=== PATIENT | female | born 1935 | race Caucasian/White ===

== ENCOUNTER 2017-04-11 08:30 | Inpatient (IN) | payer MEDICARE, OTHER ==
[~2017-04-11] VITALS: Ht 152.4 cm; Wt 64.5 kg
[2017-04-11] VITALS (14 sets, daily range): BP systolic 136–196; BP diastolic 77–92; PULSE 64–77; RESP 17–20; TEMP 97.8–99.1; O2SAT 96–98
[~2017-04-11 08:30] MED LIST: CHLO50TA PO; DARV PO; HYDR-3533 PO; HYDR-3580 PO; TRAD5TAB PO
[2017-04-11] MEDS ORDERED: CHLO25TA2 PO (08:47)
[2017-04-11] MEDS ORDERED: BENZ1CAP8 PO (08:47)
[2017-04-11] MEDS ORDERED: GLIM1TAB PO (08:47)
[2017-04-11] MEDS ORDERED: SODIUM CHLORIDE 0.9% FLUSH 10 ML FLUSH IVF PRN (09:00)
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
[2017-04-11 09:37] LABS: AUTOMATED NEUTROPHIL # 12.1 TH/MM3 (1.8-7.7); BASOPHIL % 0.1 % (0.0-2.0); EOSINOPHIL % 0.2 % (0.0-4.0); HEMO FLAGS DIFF FINAL; LYMPH % 6.3 % (9.0-44.0); LYMPHOCYTE # 0.9 TH/MM3 (1.0-4.8); MEAN CELL VOLUME 89.2 FL (80.0-100.0); MEAN CORPUSCULAR HEMOGLOBIN 31.6 PG (27.0-34.0); MEAN CORPUSCULAR HGB CONC 35.4 % (32.0-36.0); MONO % 6.9 % (0.0-8.0); NEUT % 86.5 % (16.0-70.0); PLATELET COUNT 258 TH/MM3 (150-450); RED BLOOD COUNT 3.47 MIL/MM3 (4.00-5.30); RED CELL DISTRIBUTION WIDTH 12.2 % (11.6-17.2)
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
--- NOTE | 2017-04-11 09:39 | RADRPT ---
EXAM DATE/TIME: 04/11/2017 08:53 [facility] COMPARISON: No previous studies available for comparison. INDICATIONS : Shortness of breath, fall. MEDICAL HISTORY : Hypertension. Diabetes mellitus type II. SURGICAL HISTORY : None. ENCOUNTER: Initial ACUITY: 1 day PAIN SCORE: 0/10 LOCATION: Bilateral chest FINDINGS: Mild diffuse interstitial prominence and linear opacities in the left lower lobe. Cardiac silhouette is mildly enlarged. Pulmonary vascularity slight indistinct. Old left-sided rib fractures are noted. No definite acute displaced rib fractures. CONCLUSION: 1. Cardiomegaly with mild positive fluid balance. 2. Minimal left lower lobe atelectasis. Carlos Eduardo Stoner MD on April 11, 2017 at 9:36 Board Certified Radiologist. This report was verified electronically.
[2017-04-11 09:42] LABS: BLOOD, URINE NEG (NEG); GLUCOSE,URINE NEG (NEG); KETONE, URINE 40 mg/dL (NEG); MUCUS URINE FEW /lpf (OCC); NITRITE,URINE NEG (NEG); URINE COLOR YELLOW (YELLW/STRAW)
[2017-04-11 09:43] LABS: COMMENT (UR) CATH-CULT NOT IND; CULTURE IF INDICATED CATH CULTURE NOT IND
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
[2017-04-11 09:56] LABS: APTT (PATIENT) 29.6 SEC (24.3-30.1); PROTHROMBIN TIME - PATIENT 10.7 SEC (9.8-11.6)
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
[2017-04-11 10:16] LABS: BICARBONATE 25.1 MEQ/L (21.0-32.0)
[2017-04-11] MEDS ORDERED: SODIUM CHLORID 0.9% 500 ML INJ 500 ML IV ONE (10:30)
[2017-04-11] MEDS ORDERED: POTASSIUM CHLORIDE 25 MEQ EFFERVESCENT TAB PO ONE (10:30)
[2017-04-11 10:35] LABS: CKMB 5.9 NG/ML (0.5-3.6)
[2017-04-11] MEDS ORDERED: NALOXONE HCL 0.4 MG/ML AMP IV PRN (11:15)
[2017-04-11] MEDS ORDERED: ONDANSETRON HCL 4 MG/2 ML VIAL IVP PRN (11:15)
[2017-04-11] MEDS ORDERED: SODIUM CHLORIDE 0.9% FLUSH 10 ML FLUSH IV FLUSH PRN (11:15)
[2017-04-11] MEDS ORDERED: ACETAMINOPHEN 325 MG TAB PO PRN (11:15)
[2017-04-11] MEDS ORDERED: GLUCAGON 1 MG/ML VIAL OTHER PRN (11:15)
[2017-04-11] MEDS ORDERED: DEXTROSE 50% IN WATER 50 ML VIAL(D50) IV PRN (11:15)
[2017-04-11] MEDS: SODIUM CHLOR 0.9% 1000 ML INJ 1,000 ML IV SCH (12:09)
--- NOTE | 2017-04-11 14:32 | EKG ---
Date Performed: 04/11/2017 Time Performed: 09:19:58 PTAGE: 81 years EKG: Sinus rhythm INFERIOR MYOCARDIAL INFARCTION ABNORMAL ECG NO PREVIOUS TRACING DOCTOR: Romero Lucero Interpretating Date/Time 04/11/2017 14:31:21
[2017-04-11] MEDS ORDERED: GADODIAMIDE PF 287 MG/ML 5 ML VIAL (for RAD MRI) IV ONE (15:06)
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
[2017-04-11] MEDS: INSULIN ASPART SUPPLEMENTAL SCALE SQ SCH ×2 (16:00→20:59)
[2017-04-11] MEDS ORDERED: RESP: ALBUTEROL 2.5 MG/IPRATROPIUM 0.5 MG NEB (PRN) NEB (16:00)
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
[2017-04-11 18:34] LABS: BICARBONATE 27.5 MEQ/L (21.0-32.0); POTASSIUM 3.4 MEQ/L (3.5-5.1)
[2017-04-11] MEDS: DOCUSATE SODIUM 50 MG/SENNA 8.6 MG TAB PO SCH (20:55)
[2017-04-11] MEDS: SODIUM CHLORIDE 0.9% FLUSH 10 ML FLUSH IV FLUSH SCH (20:57)
[2017-04-12] VITALS (24 sets, daily range): BP systolic 103–157; BP diastolic 44–73; PULSE 64–128; RESP 16–28; TEMP 97.7–100; O2SAT 95–98
[2017-04-12 04:41] LABS: AUTOMATED NEUTROPHIL # 8.3 TH/MM3 (1.8-7.7); BASOPHIL % 0.2 % (0.0-2.0); EOSINOPHIL # 0.1 TH/MM3 (0-0.4); EOSINOPHIL % 0.6 % (0.0-4.0); HEMATOCRIT 26.3 % (35.0-46.0); HEMO FLAGS DIFF FINAL; LYMPH % 12.3 % (9.0-44.0); LYMPHOCYTE # 1.3 TH/MM3 (1.0-4.8); MEAN CELL VOLUME 89.3 FL (80.0-100.0); MEAN CORPUSCULAR HGB CONC 35.8 % (32.0-36.0); MONO % 9.1 % (0.0-8.0); NEUT % 77.8 % (16.0-70.0); PLATELET COUNT 230 TH/MM3 (150-450); RED BLOOD COUNT 2.95 MIL/MM3 (4.00-5.30); RED CELL DISTRIBUTION WIDTH 12.3 % (11.6-17.2); WHITE BLOOD COUNT 10.7 TH/MM3 (4.0-11.0)
[2017-04-12 05:02] LABS: ANION GAP 8 MEQ/L (5-15)
[2017-04-12 05:06] LABS: ALKALINE PHOSPHATASE 48 U/L (45-117); ALT (GPT) 16 U/L (10-53); AST (GOT) 18 U/L (15-37); BICARBONATE 28.1 MEQ/L (21.0-32.0); BLOOD UREA NITROGEN 17 MG/DL (7-18); CHLORIDE 86 MEQ/L (98-107); GLOMERULAR FILTRATION RATE 118 ML/MIN (>89); TOTAL BILIRUBIN ADULT 0.9 MG/DL (0.2-1.0)
[2017-04-12 05:08] LABS: SODIUM (NA) 122 MEQ/L (136-145)
[2017-04-12] MEDS: INSULIN ASPART SUPPLEMENTAL SCALE SQ SCH ×4 (06:13→20:09)
[2017-04-12] MEDS ORDERED: POTASSIUM CHLORIDE 25 MEQ EFFERVESCENT TAB PO ONE (07:45)
[2017-04-12] MEDS: GLIMEPIRIDE 1 MG TAB PO SCH (08:43)
[2017-04-12] MEDS: DOCUSATE SODIUM 50 MG/SENNA 8.6 MG TAB PO SCH ×2 (08:43→20:07)
[2017-04-12] MEDS: SODIUM CHLORIDE 0.9% FLUSH 10 ML FLUSH IV FLUSH SCH ×2 (08:46→20:08)
[2017-04-12] MEDS ORDERED: NON-FORMULARY DRUG (Chlorthalidone 25 MG) PO SCH (09:00)
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
[2017-04-12] MEDS ORDERED: PNEUMOCOCCAL POLYVALENT INJ 25 MCG/0.5 ML SYR IM ONE (10:00)
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
[2017-04-12] MEDS ORDERED: DILTIAZEM HCL 25 MG/5 ML VIAL IV ONE ×2 (16:00)
[2017-04-12] MEDS: SODIUM CHLOR 0.9% 1000 ML INJ 1,000 ML IV SCH ×2 (16:36→21:46)
[2017-04-13] VITALS (26 sets, daily range): BP systolic 105–172; BP diastolic 47–79; PULSE 68–111; RESP 18–27; TEMP 97.5–99.2; O2SAT 97–100
[2017-04-13 06:25] LABS: BICARBONATE 25.6 MEQ/L (21.0-32.0); POTASSIUM 3.3 MEQ/L (3.5-5.1)
[2017-04-13] MEDS: INSULIN ASPART SUPPLEMENTAL SCALE SQ SCH ×4 (06:31→21:29)
[2017-04-13] MEDS: GLIMEPIRIDE 1 MG TAB PO SCH (08:42)
[2017-04-13] MEDS: SODIUM CHLORIDE 0.9% FLUSH 10 ML FLUSH IV FLUSH SCH ×2 (08:42→21:00)
[2017-04-13] MEDS: DOCUSATE SODIUM 50 MG/SENNA 8.6 MG TAB PO SCH ×2 (09:00→21:29)
[2017-04-13] MEDS: SODIUM CHLOR 0.9% 1000 ML INJ 1,000 ML IV SCH ×2 (10:41→21:43)
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
[2017-04-13] MEDS: POLYETHYLENE GLYCOL 17 GM PKG PO PRN (12:16)
[2017-04-13] MEDS: VITAMIN B COMPLEX/VIT C TAB PO SCH (12:16)
--- NOTE | 2017-04-13 14:19 | EKG ---
Date Performed: 04/12/2017 Time Performed: 15:53:58 PTAGE: 81 years EKG: Atrial fibrillation with rapid ventricular response. Inferior infarct - age undetermined QR S changes V3/V4 may be due to LVH but cannot rule out anterior infarct Lateral ST-T changes may be du e to myocardial ischemia Abnormal ECG PREVIOUS TRACING : 04/11/2017 09.19 Since the prior tracing, the patient has developed atrial f ibrillation with a rapid ventricular response. DOCTOR: Celia Martinez Interpretating Date/Time 04/13/2017 14:18:18
[2017-04-13] MEDS ORDERED: POTASSIUM CHLORIDE 20 MEQ CONTROLLED RELEASE TAB PO ONE (16:00)
[2017-04-13] MEDS: MAGNESIUM HYDROXIDE SUSP 30 ML CUP PO PRN (18:38)
[2017-04-14] VITALS (25 sets, daily range): BP systolic 140–189; BP diastolic 64–86; PULSE 69–80; RESP 20–28; TEMP 97.8–99.4; O2SAT 20–98
[2017-04-14] MEDS: INSULIN ASPART SUPPLEMENTAL SCALE SQ SCH ×4 (07:00→19:57)
[2017-04-14 07:24] LABS: BICARBONATE 23.7 MEQ/L (21.0-32.0); POTASSIUM 4.5 MEQ/L (3.5-5.1)
[2017-04-14] MEDS: SODIUM CHLORIDE 0.9% FLUSH 10 ML FLUSH IV FLUSH SCH ×2 (09:00→19:54)
[2017-04-14] MEDS: DOCUSATE SODIUM 50 MG/SENNA 8.6 MG TAB PO SCH ×2 (09:00→20:05)
[2017-04-14] MEDS: GLIMEPIRIDE 1 MG TAB PO SCH (09:56)
[2017-04-14] MEDS: MAGNESIUM HYDROXIDE SUSP 30 ML CUP PO PRN (09:56)
[2017-04-14] MEDS: VITAMIN B COMPLEX/VIT C TAB PO SCH (09:56)
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
[2017-04-14] MEDS: MULTIVITAMIN-OPHTHALMIC 1 TAB PO SCH (10:45)
[2017-04-14] MEDS: SODIUM CHLOR 0.9% 1000 ML INJ 1,000 ML IV SCH (11:30)
[2017-04-14] MEDS: ENALAPRILAT 1.25 MG/ML VIAL IV PUSH PRN (19:55)
[2017-04-14] MEDS: POLYETHYLENE GLYCOL 17 GM PKG PO PRN (20:06)
[2017-04-15] VITALS (20 sets, daily range): BP systolic 149–187; BP diastolic 74–82; PULSE 72–92; RESP 16–22; TEMP 98.6–98.9; O2SAT 96–100
[2017-04-15] MEDS: SODIUM CHLOR 0.9% 1000 ML INJ 1,000 ML IV SCH (01:48)
[2017-04-15] MEDS: INSULIN ASPART SUPPLEMENTAL SCALE SQ SCH ×4 (06:45→20:55)
[2017-04-15] MEDS: MULTIVITAMIN-OPHTHALMIC 1 TAB PO SCH (08:31)
[2017-04-15] MEDS: DOCUSATE SODIUM 50 MG/SENNA 8.6 MG TAB PO SCH ×2 (08:31→20:45)
[2017-04-15] MEDS: VITAMIN B COMPLEX/VIT C TAB PO SCH (08:31)
[2017-04-15] MEDS: GLIMEPIRIDE 1 MG TAB PO SCH (08:31)
[2017-04-15] MEDS: ENALAPRILAT 1.25 MG/ML VIAL IV PUSH PRN ×2 (09:25→16:35)
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
[2017-04-15] MEDS ORDERED: amLODIPine BESYLATE 5 MG TAB PO ONE (12:45)
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
[2017-04-15] MEDS: POLYETHYLENE GLYCOL 17 GM PKG PO PRN (20:46)
[2017-04-15] MEDS: SODIUM CHLORIDE 0.9% FLUSH 10 ML FLUSH IV FLUSH SCH (20:46)
[2017-04-15] MEDS: MAGNESIUM HYDROXIDE SUSP 30 ML CUP PO PRN (20:46)
[2017-04-16] VITALS (22 sets, daily range): BP systolic 151–170; BP diastolic 69–83; PULSE 71–86; RESP 18–20; TEMP 97.6–98.7; O2SAT 96–99
[2017-04-16 06:45] LABS: HEMATOCRIT 21.3 % (35.0-46.0); MEAN CELL VOLUME 91.6 FL (80.0-100.0); MEAN CORPUSCULAR HEMOGLOBIN 32.1 PG (27.0-34.0); MEAN CORPUSCULAR HGB CONC 35.1 % (32.0-36.0); PLATELET COUNT 353 TH/MM3 (150-450); RED BLOOD COUNT 2.32 MIL/MM3 (4.00-5.30); RED CELL DISTRIBUTION WIDTH 12.7 % (11.6-17.2); REVIEW FLAG FINAL; WHITE BLOOD COUNT 13.1 TH/MM3 (4.0-11.0)
[2017-04-16] MEDS ORDERED: BISACODYL 10 MG SUPP RECTAL PRN (07:00)
[2017-04-16] MEDS: INSULIN ASPART SUPPLEMENTAL SCALE SQ SCH ×4 (07:00→19:57)
[2017-04-16 07:20] LABS: BICARBONATE 28.1 MEQ/L (21.0-32.0); POTASSIUM 3.9 MEQ/L (3.5-5.1)
[2017-04-16] MEDS: DOCUSATE SODIUM 50 MG/SENNA 8.6 MG TAB PO SCH ×2 (09:00→19:56)
[2017-04-16] MEDS: GLIMEPIRIDE 1 MG TAB PO SCH (09:27)
[2017-04-16] MEDS: MULTIVITAMIN-OPHTHALMIC 1 TAB PO SCH (09:27)
[2017-04-16] MEDS: VITAMIN B COMPLEX/VIT C TAB PO SCH (09:27)
[2017-04-16] MEDS: amLODIPine BESYLATE 5 MG TAB PO SCH (09:27)
[2017-04-16] MEDS: SODIUM CHLORIDE 0.9% FLUSH 10 ML FLUSH IV FLUSH SCH ×2 (09:28→19:57)
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
[2017-04-16] MEDS: SODIUM CHLORIDE 1 GRAM TAB PO SCH (22:20)
[2017-04-17] VITALS (27 sets, daily range): BP systolic 138–170; BP diastolic 70–81; PULSE 72–81; RESP 18–21; TEMP 98.4–99; O2SAT 97–99
[2017-04-17] MEDS: INSULIN ASPART SUPPLEMENTAL SCALE SQ SCH ×4 (05:49→20:46)
[2017-04-17] MEDS: MULTIVITAMIN-OPHTHALMIC 1 TAB PO SCH (09:00)
[2017-04-17] MEDS: SODIUM CHLORIDE 0.9% FLUSH 10 ML FLUSH IV FLUSH SCH ×2 (09:18→20:36)
[2017-04-17] MEDS: VITAMIN B COMPLEX/VIT C TAB PO SCH (09:18)
[2017-04-17] MEDS: POTASSIUM CHLORIDE 20 MEQ CONTROLLED RELEASE TAB PO SCH (09:19)
[2017-04-17] MEDS: amLODIPine BESYLATE 5 MG TAB PO SCH (09:19)
[2017-04-17] MEDS: GLIMEPIRIDE 1 MG TAB PO SCH (09:19)
[2017-04-17] MEDS: DOCUSATE SODIUM 50 MG/SENNA 8.6 MG TAB PO SCH ×2 (09:19→20:36)
[2017-04-17] MEDS: FUROSEMIDE 20 MG TAB PO SCH (09:19)
[2017-04-17] MEDS: SODIUM CHLORIDE 1 GRAM TAB PO SCH ×2 (10:22→20:36)
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
[2017-04-17 17:45] LABS: AUTOMATED NEUTROPHIL # 15.4 TH/MM3 (1.8-7.7); BASOPHIL % 0.2 % (0.0-2.0); EOSINOPHIL # 0.1 TH/MM3 (0-0.4); EOSINOPHIL % 0.7 % (0.0-4.0); HEMATOCRIT 22.5 % (35.0-46.0); HEMO FLAGS DIFF FINAL; LYMPHOCYTE # 1.6 TH/MM3 (1.0-4.8); MEAN CELL VOLUME 93.3 FL (80.0-100.0); MEAN CORPUSCULAR HEMOGLOBIN 31.3 PG (27.0-34.0); MEAN CORPUSCULAR HGB CONC 33.5 % (32.0-36.0); MONO % 5.4 % (0.0-8.0); NEUT % 84.7 % (16.0-70.0); PLATELET COUNT 387 TH/MM3 (150-450); RED BLOOD COUNT 2.42 MIL/MM3 (4.00-5.30); RED CELL DISTRIBUTION WIDTH 13.3 % (11.6-17.2); WHITE BLOOD COUNT 18.2 TH/MM3 (4.0-11.0)
[2017-04-17 18:16] LABS: BICARBONATE 28.2 MEQ/L (21.0-32.0); POTASSIUM 4.6 MEQ/L (3.5-5.1)
[2017-04-17] MEDS ORDERED: SODIUM CHLOR 0.9% 1000 ML INJ 1,000 ML IV SCH (20:00)
[2017-04-17] MEDS ORDERED: TOLVAPTAN 15 MG TAB PO ONE (22:45)
[2017-04-18] VITALS (27 sets, daily range): BP systolic 130–149; BP diastolic 58–71; PULSE 60–88; RESP 18; TEMP 98.5–99; O2SAT 96–98
[2017-04-18 05:26] LABS: BICARBONATE 27.9 MEQ/L (21.0-32.0); POTASSIUM 3.7 MEQ/L (3.5-5.1)
[2017-04-18] MEDS: INSULIN ASPART SUPPLEMENTAL SCALE SQ SCH ×4 (06:08→21:00)
[2017-04-18] MEDS: DOCUSATE SODIUM 50 MG/SENNA 8.6 MG TAB PO SCH ×2 (09:39→21:00)
[2017-04-18] MEDS: SODIUM CHLORIDE 1 GRAM TAB PO SCH ×3 (09:39→18:01)
[2017-04-18] MEDS: amLODIPine BESYLATE 5 MG TAB PO SCH (09:39)
[2017-04-18] MEDS: VITAMIN B COMPLEX/VIT C TAB PO SCH (09:39)
[2017-04-18] MEDS: SODIUM CHLORIDE 0.9% FLUSH 10 ML FLUSH IV FLUSH SCH ×2 (09:40→21:00)
[2017-04-18] MEDS: FUROSEMIDE 20 MG TAB PO SCH (09:40)
[2017-04-18] MEDS: GLIMEPIRIDE 1 MG TAB PO SCH (09:40)
[2017-04-18] MEDS: POTASSIUM CHLORIDE 20 MEQ CONTROLLED RELEASE TAB PO SCH (09:40)
[2017-04-18] MEDS: MULTIVITAMIN-OPHTHALMIC 1 TAB PO SCH (09:40)
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
[2017-04-18 23:28] LABS: BICARBONATE 29.4 MEQ/L (21.0-32.0); POTASSIUM 4.2 MEQ/L (3.5-5.1); URIC ACID 3.8 MG/DL (2.6-6.0)
[2017-04-19] VITALS (23 sets, daily range): BP systolic 124–151; BP diastolic 54–73; PULSE 71–90; RESP 14–19; TEMP 97.9–99.2; O2SAT 96–100
[2017-04-19] MEDS: INSULIN ASPART SUPPLEMENTAL SCALE SQ SCH ×4 (06:20→21:00)
[2017-04-19] MEDS: MULTIVITAMIN-OPHTHALMIC 1 TAB PO SCH (09:13)
[2017-04-19] MEDS: SODIUM CHLORIDE 0.9% FLUSH 10 ML FLUSH IV FLUSH SCH ×2 (09:13→21:22)
[2017-04-19] MEDS: DOCUSATE SODIUM 50 MG/SENNA 8.6 MG TAB PO SCH ×2 (09:14→21:22)
[2017-04-19] MEDS: amLODIPine BESYLATE 5 MG TAB PO SCH (09:14)
[2017-04-19] MEDS: POTASSIUM CHLORIDE 20 MEQ CONTROLLED RELEASE TAB PO SCH (09:14)
[2017-04-19] MEDS: SODIUM CHLORIDE 1 GRAM TAB PO SCH ×3 (09:14→17:54)
[2017-04-19] MEDS: FUROSEMIDE 20 MG TAB PO SCH (09:14)
[2017-04-19] MEDS: VITAMIN B COMPLEX/VIT C TAB PO SCH (09:14)
[2017-04-19] MEDS: GLIMEPIRIDE 1 MG TAB PO SCH (09:15)
--- NOTE | 2017-04-19 10:05 | HHI.NPPN ---
Subjective Interval History patient was seen and examined. Much more alert. She understands questions. Objective Data Data 04/18/17 04/19/17 19:00 07:00 Intake Total 960 ml 480 ml Balance 960 ml 480 ml Intake Oral 960 ml 480 ml # Voids 5 4 # Bowel Movements 1 0 Vital Signs Date Time Temp Pulse Resp B/P Pulse Ox O2 Delivery O2 Flow Rate FiO2 04/19/17 07:00 72 04/19/17 07:00 98.6 76 19 151/66 96 04/19/17 06:00 76 04/19/17 05:00 72 04/19/17 04:39 97.9 74 14 124/54 100 04/19/17 04:00 74 04/19/17 03:00 84 04/19/17 02:00 82 04/19/17 01:00 84 04/19/17 00:00 99.0 89 14 143/73 99 04/19/17 00:00 87 04/18/17 23:00 86 04/18/17 22:00 86 04/18/17 21:00 80 04/18/17 20:00 75 04/18/17 19:58 99.0 75 18 130/58 97 04/18/17 19:00 76 04/18/17 18:00 76 04/18/17 17:00 82 04/18/17 16:00 78 04/18/17 15:00 99.0 83 18 148/69 98 04/18/17 15:00 60 04/18/17 14:00 81 04/18/17 13:00 84 04/18/17 12:00 87 04/18/17 11:00 98.6 84 18 131/71 97 04/18/17 11:00 81 04/18/17 10:00 84 -: 04/17/17 1642 04/18/17 2244 Physical Exam General Appearance: Well Developed, No Acute Distress, Comfortable Eyes Eye Exam: Pupils Reactive Ears & Nose Ears & Nose Exam: Nasal Mucosa [place] Neck Neck Exam: Neck Supple Pulmonary Resp Exam: Clear Bilaterally Cardiology CV Exam: Normal Sinus Rhythm Gastrointestinal/Abdomen GI Exam: Soft, Non-Tender, Bowel Sounds Present, Non-Distended Genitourinary Exam: Clear Urine Integumentary Skin Exam: Dry Extremeties Extremities Exam: No Edema Neurologic Neuro Exam: Alert, Awake, Speech Clear, No Focal Deficits Psychiatric Psych Exam: Appropriate Responses VTE Prophylaxis Device: SCDs Assessment/Plan Problem List: (1) Hyponatremia Plan: May have been due to thiazide diuretic. Etiology will be difficult to ascertain because she has been placed salt tablet , loop diuretic, and Tolvaptan. Serum Na has improved. Tolvaptan has been stopped. Avoid thiazide diuretic. I will see as needed. Jamshid Prieto MD Apr 19, 2017 10:05
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
[2017-04-20] VITALS (17 sets, daily range): BP systolic 129–169; BP diastolic 65–78; PULSE 76–100; RESP 18–20; TEMP 98.8–99.3; O2SAT 97–99
[2017-04-20] MEDS: INSULIN ASPART SUPPLEMENTAL SCALE SQ SCH ×3 (06:47→16:00)
[2017-04-20 06:51] LABS: BICARBONATE 27.2 MEQ/L (21.0-32.0); POTASSIUM 4.1 MEQ/L (3.5-5.1)
[2017-04-20] MEDS: DOCUSATE SODIUM 50 MG/SENNA 8.6 MG TAB PO SCH (09:00)
[2017-04-20] MEDS: SODIUM CHLORIDE 0.9% FLUSH 10 ML FLUSH IV FLUSH SCH (09:15)
[2017-04-20] MEDS: FUROSEMIDE 20 MG TAB PO SCH (09:16)
[2017-04-20] MEDS: MULTIVITAMIN-OPHTHALMIC 1 TAB PO SCH (09:16)
[2017-04-20] MEDS: VITAMIN B COMPLEX/VIT C TAB PO SCH (09:16)
[2017-04-20] MEDS: amLODIPine BESYLATE 5 MG TAB PO SCH (09:16)
[2017-04-20] MEDS: SODIUM CHLORIDE 1 GRAM TAB PO SCH ×3 (09:16→17:26)
[2017-04-20] MEDS: POTASSIUM CHLORIDE 20 MEQ CONTROLLED RELEASE TAB PO SCH (09:16)
[2017-04-20] MEDS: GLIMEPIRIDE 1 MG TAB PO SCH (09:16)
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
[2017-04-20] MEDS ORDERED: FURO20TA PO (14:35)
[2017-04-20] MEDS ORDERED: SODI1TAB PO (14:35)
== END 2017-04-20 20:47 | DRG 641 ==
LOC: NEPE 08:30 → NEDA 10:25 → HCIS 12:22
PROVIDERS: ADMIT Specialist; ATTEND Specialist
DX: E87.1 Hypo-osmolality and hyponatremia (principal); E11.65 Type 2 diabetes mellitus with hyperglycemia; Z79.84 Long term (current) use of oral hypoglycemic drugs; E87.5 Hyperkalemia; D64.9 Anemia, unspecified; I10 Essential (primary) hypertension; D72.829 Elevated white blood cell count, unspecified; I51.7 Cardiomegaly; E87.6 Hypokalemia; S52.91XD Unspecified fracture of right forearm, subsequent encounter for closed fracture with routine healing; H91.90 Unspecified hearing loss, unspecified ear; I25.10 Atherosclerotic heart disease of native coronary artery without angina pectoris; D32.0 Benign neoplasm of cerebral meninges; Z66 Do not resuscitate; R41.0 Disorientation, unspecified; R80.9 Proteinuria, unspecified; H54.7 Unspecified visual loss; Z91.81 History of falling; Z87.891 Personal history of nicotine dependence
CPT/HCPCS: 70450; 70553; 71010; 72170; 73090; 76937; 80048; 80053; 80069; 81001; 82272; 82550; 82552; 82948; 83735; 83880; 84484; 84550; 85025; 85027; 85610; 85730; 90732; 93005; 94664; A9579; J1815; J7030; J7040

== ENCOUNTER 2017-04-25 09:07 | Inpatient (IN) | payer MEDICARE, OTHER ==
[2017-04-25] VITALS (9 sets, daily range): BP systolic 107–186; BP diastolic 53–98; PULSE 83–100; RESP 16–19; TEMP 95.7–99.4; O2SAT 96–100
[~2017-04-25] VITALS: Ht 162.6 cm; Wt 65.1 kg
[~2017-04-25 09:07] MED LIST changes: +BENZ1CAP8 PO; -CHLO50TA PO; -DARV PO; +FURO20TA PO; +GLIM1TAB PO; -HYDR-3533 PO; -HYDR-3580 PO; +SODI1TAB PO; -TRAD5TAB PO
[2017-04-25] MEDS ORDERED: SODIUM CHLOR 0.9% 1000 ML INJ 1,000 ML IV SCH (09:18)
--- NOTE | 2017-04-25 09:22 | PD ---
HPI Chief Complaint: GI bleed Time Seen by Provider: 09:18 Travel History International Travel<30 days: No Contact w/Intl Traveler<30days: No Traveled to known affect area: No History of Present Illness HPI 81-year-old Hebrew female usp patient presents to the ER today because she has been having dark diarrhea and there is concern about a GI bleed. Her H& H shows a hemoglobin of 7.3 from 3 days ago. Patient is nonverbal and not able to give me any further history. Modifying Factors: None Associated Signs & Symptoms: GI bleed Risk Factors: None PFSH Past Medical History Arthritis: No Asthma: No Autoimmune Disease: No Heart Rhythm Problems: No Cancer: No Cardiovascular Problems: Yes High Cholesterol: No Chemotherapy: No Chest Pain: No Congestive Heart Failure: No COPD: No Cerebrovascular Accident: No Diabetes: Yes Diminished Hearing: Yes ([place]) Endocrine: No GERD: No Genitourinary: No Hiatal Hernia: No Hypertension: Yes Immune Disorder: No Kidney Stones: No Musculoskeletal: No Neurologic: No Psychiatric: No Reproductive: No Respiratory: No Migraines: No Radiation Therapy: No Seizures: No Sickle Cell Disease: No Sleep Apnea: No Thyroid Disease: No Ulcer: No Menopausal: Yes Past Surgical History Abdominal Surgery: No AICD: No Arteriovenous Shunt: No Cardiac Surgery: No Ear Surgery: No Endocrine Surgery: No Eye Surgery: Yes Genitourinary Surgery: No Gynecologic Surgery: No Insulin Pump: No Joint Replacement: No Oral Surgery: No Pacemaker: No Thoracic Surgery: No Social History Alcohol Use: Yes (RARE) Tobacco Use: No (QUIT) Substance Use: No Allergies-Medications (Allergen,Severity, Reaction): Coded Allergies: No Known Allergies (Verified , 04/11/17) Reported Meds & Prescriptions Reported Meds & Active Scripts Active Furosemide 20 Mg Tab 20 Mg PO BID NEB Sodium Chloride 1 Gm Tab 2 Gm PO TID Reported Glimepiride 1 Mg Tab 1 Mg PO DAILY Take with breakfast or first main meal Benzonatate 100 Mg Cap 100 Mg PO TID PRN Review of Systems ROS Limitations: Altered Mental Status Physical Exam Narrative GENERAL: Well-developed elderly female patient currently not in acute distress. She is awake, alert, but nonverbal. SKIN: Focused skin assessment warm/dry. HEAD: Atraumatic. Normocephalic. EYES: Pupils equal and round. No scleral icterus. No injection or drainage. ENT: No nasal bleeding or discharge. Mucous membranes pink and moist. NECK: Trachea midline. No JVD. CARDIOVASCULAR: Regular rate and rhythm. No murmur appreciated. RESPIRATORY: No accessory muscle use. Clear to auscultation. Breath sounds equal bilaterally. GASTROINTESTINAL: Abdomen soft, non-tender, nondistended. Hepatic and splenic margins not palpable. MUSCULOSKELETAL: No obvious deformities. No clubbing. No cyanosis. No edema. NEUROLOGICAL: Awake and alert. No obvious cranial nerve deficits. Motor grossly within normal limits. Normal speech. PSYCHIATRIC: Appropriate mood and affect; insight and judgment normal. Data Data Last Documented VS Vital Signs Date Time Temp Pulse Resp B/P Pulse Ox O2 Delivery O2 Flow Rate FiO2 04/25/17 10:20 97 18 117/53 100 Nasal Cannula 2 04/25/17 09:36 99.2 Orders Complete Blood Count With Diff (04/25/17 09:18) Comprehensive Metabolic Panel (04/25/17 09:18) Prothrombin Time / Inr (Pt) (04/25/17 09:18) Act Partial Throm Time (Ptt) (04/25/17 09:18) Type And Screen (04/25/17 09:18) Abdomen, Flat & Upright (04/25/17 09:18) Ecg Monitoring (04/25/17 09:18) Iv Access Insert/Monitor (04/25/17 09:18) Oximetry (04/25/17 09:18) Sodium Chlor 0.9% 1000 Ml Inj (Ns 1000 M (04/25/17 09:18) Sodium Chloride 0.9% Flush (Ns Flush) (04/25/17 09:30) Pantoprazole Inj (Protonix Inj) (04/25/17 09:30) Pantoprazole Inj (Protonix Inj) (04/25/17 09:30) Urinary Catheter Insert/Apply (04/25/17 09:20) Red Blood Cells (Rbc) (04/25/17 10:00) Blood Product Administration .UPON TRANSFUSION (04/25/17 10:00) Sodium Chlor 0.9% 250 Ml Inj (Ns 250 Ml (04/25/17 10:00) Admit Order (Ed Use Only) (04/25/17 10:23) Place In Observation (04/25/17 ) Vital Signs (Adult) Q4H (04/25/17 10:31) Activity Bed Rest With Brp (04/25/17 10:31) Diet Clear Liquid (04/25/17 Lunch) Sodium Chloride 0.9% Flush (Ns Flush) (04/25/17 10:45) Sodium Chloride 0.9% Flush (Ns Flush) (04/25/17 21:00) Basic Metabolic Panel (Bmp) (04/26/17 06:00) Complete Blood Count With Diff (04/26/17 06:00) Scd Bilateral/Knee High ZAN.BID (04/25/17 10:31) Naloxone Inj (Narcan Inj) (04/25/17 10:45) Docusate Sodium-Senna (Amy-Colace) (04/25/17 21:00) Magnesium Hydroxide Liq (Milk Of Magnesi (04/25/17 10:45) Sennosides (Senokot) (04/25/17 10:45) Bisacodyl Supp (Dulcolax Supp) (04/25/17 10:45) Lactulose Liq (Lactulose Liq) (04/25/17 10:45) Labs Laboratory Tests Test 04/25/17 04/25/17 04/25/17 09:15 09:40 10:10 White Blood Count 27.5 TH/MM3 Red Blood Count 2.04 MIL/MM3 Hemoglobin 6.4 GM/DL Hematocrit 19.7 % Mean Corpuscular Volume 96.3 FL Mean Corpuscular Hemoglobin 31.3 PG Mean Corpuscular Hemoglobin 32.5 % Concent Red Cell Distribution Width 14.3 % Platelet Count 424 TH/MM3 Mean Platelet Volume 7.6 FL Neutrophils (%) (Auto) % Lymphocytes (%) (Auto) % Monocytes (%) (Auto) % Eosinophils (%) (Auto) % Basophils (%) (Auto) % Neutrophils # (Auto) TH/MM3 Lymphocytes # (Auto) TH/MM3 Monocytes # (Auto) TH/MM3 Eosinophils # (Auto) TH/MM3 Basophils # (Auto) TH/MM3 CBC Comment AUTO DIFF Differential Total Cells 100 Counted Neutrophils % (Manual) 95 % Band Neutrophils % 1 % Lymphocytes % 3 % Monocytes % 1 % Neutrophils # (Manual) 26.4 TH/MM3 Differential Comment FINAL DIFF MANUAL Platelet Estimate HIGH Platelet Morphology Comment NORMAL Prothrombin Time 13.6 SEC Prothromb Time International 1.2 RATIO Ratio Activated Partial 21.4 SEC Thromboplast Time Sodium Level 139 MEQ/L Potassium Level 5.2 MEQ/L Chloride Level 102 MEQ/L Carbon Dioxide Level 20.9 MEQ/L Anion Gap 16 MEQ/L Blood Urea Nitrogen 46 MG/DL Creatinine 1.70 MG/DL Estimat Glomerular Filtration 29 ML/MIN Rate Random Glucose 187 MG/DL Calcium Level 8.2 MG/DL Total Bilirubin 0.6 MG/DL Aspartate Amino Transf 134 U/L (AST/SGOT) Alanine Aminotransferase 117 U/L (ALT/SGPT) Alkaline Phosphatase 97 U/L Total Protein 6.1 GM/DL Albumin 2.2 GM/DL Blood Type AB POSITIVE Antibody Screen NEGATIVE Blood Bank Comment Crossmatch Leukocyte-Reduced Red Blood Cells MDM Medical Decision Making Medical Screen Exam Complete: Yes Emergency Medical Condition: Yes Medical Record Reviewed: Yes Interpretation(s) Laboratory Tests Test 04/25/17 09:15 White Blood Count 27.5 TH/MM3 (4.0-11.0) Red Blood Count 2.04 MIL/MM3 (4.00-5.30) Hemoglobin 6.4 GM/DL (11.6-15.3) Hematocrit 19.7 % (35.0-46.0) Prothrombin Time 13.6 SEC (9.8-11.6) Activated Partial 21.4 SEC Thromboplast Time (24.3-30.1) Potassium Level 5.2 MEQ/L (3.5-5.1) Carbon Dioxide Level 20.9 MEQ/L (21.0-32.0) Anion Gap 16 MEQ/L (5-15) Blood Urea Nitrogen 46 MG/DL (7-18) Creatinine 1.70 MG/DL (0.50-1.00) Estimat Glomerular Filtration 29 ML/MIN (>89) Rate Random Glucose 187 MG/DL (74-106) Calcium Level 8.2 MG/DL (8.5-10.1) Aspartate Amino Transf 134 U/L (15-37) (AST/SGOT) Alanine Aminotransferase 117 U/L (10-53) (ALT/SGPT) Total Protein 6.1 GM/DL (6.4-8.2) Albumin 2.2 GM/DL (3.4-5.0) Differential Diagnosis Hemoccult-positive/diarrheaGI bleed versus coagulopathy, rule out anemia Narrative Course Hemoccult was positive. H&H shows low hemoglobin of 6. 2 units of PRBCs were ordered for this patient. IV fluids were ordered and Protonix was initiated. Case was discussed with Dr. Sanford for admission. GI consult on the case. HemaPrompt Point of Care Internal Pos. & Neg. Controls: Passed Fecal Specimen Occult Blood: Positive Diagnosis Primary Impression: GI bleed Additional Impression: Severe anemia Admitting Information Admitting Physician Requests: Admit Marck Chester MD Apr 25, 2017 09:21
[2017-04-25] MEDS ORDERED: SODIUM CHLORIDE 0.9% FLUSH 10 ML FLUSH IVF PRN (09:30)
[2017-04-25] MEDS ORDERED: PANTOPRAZOLE INJ 80 MG in SODIUM CHLORIDE 0.9% INJ 35 ML IV ONE (09:30)
[2017-04-25 09:42] LABS: MEAN CELL VOLUME 96.3 FL (80.0-100.0); MEAN CORPUSCULAR HEMOGLOBIN 31.3 PG (27.0-34.0); MEAN CORPUSCULAR HGB CONC 32.5 % (32.0-36.0); PLATELET COUNT 424 TH/MM3 (150-450); RED BLOOD COUNT 2.04 MIL/MM3 (4.00-5.30); RED CELL DISTRIBUTION WIDTH 14.3 % (11.6-17.2); WHITE BLOOD COUNT 27.5 TH/MM3 (4.0-11.0)
[2017-04-25 09:48] LABS: APTT (PATIENT) 21.4 SEC (24.3-30.1); INTERNATIONAL NORMALIZED RATIO 1.2 RATIO; PROTHROMBIN TIME - PATIENT 13.6 SEC (9.8-11.6)
[2017-04-25 09:50] LABS: HEMO FLAGS AUTO DIFF
[2017-04-25 09:54] LABS: HEMATOCRIT 19.7 % (35.0-46.0)
[2017-04-25 09:59] LABS: ANION GAP 16 MEQ/L (5-15); AST (GOT) 134 U/L (15-37); BICARBONATE 20.9 MEQ/L (21.0-32.0); BLOOD UREA NITROGEN 46 MG/DL (7-18); CHLORIDE 102 MEQ/L (98-107); GLOMERULAR FILTRATION RATE 29 ML/MIN (>89); POTASSIUM 5.2 MEQ/L (3.5-5.1); SODIUM (NA) 139 MEQ/L (136-145)
[2017-04-25] MEDS ORDERED: SODIUM CHLOR 0.9% 250 ML INJ 250 ML IV ONE (10:00)
[2017-04-25 10:03] LABS: ALKALINE PHOSPHATASE 97 U/L (45-117); ALT (GPT) 117 U/L (10-53); TOTAL BILIRUBIN ADULT 0.6 MG/DL (0.2-1.0)
[2017-04-25] MEDS: PANTOPRAZOLE INJ 80 MG in SODIUM CHLORIDE 0.9% INJ 100 ML IV SCH ×2 (10:22→20:29)
[2017-04-25 10:36] LABS: BANDS 1 % (0-6); NEUTROPHIL # MANUAL DIFF 26.4 TH/MM3 (1.8-7.7); POLYS (SEG NEUTROPHILS) 95 % (16-70); WBC DIFF SAMPLE 100
[2017-04-25 10:37] LABS: PLATELET ESTIMATE SMEAR HIGH (NORMAL); PLATELET MORPHOLOGY NORMAL (NORMAL); SCAN/DIFF FINAL DIFF MANUAL
--- NOTE | 2017-04-25 10:43 | RADRPT ---
EXAM DATE/TIME: 04/25/2017 10:05 [facility] COMPARISON: No previous studies available for comparison. INDICATIONS : Dark stool. Patient unresponsive. MEDICAL HISTORY : None. SURGICAL HISTORY : None. ENCOUNTER: Initial ACUITY: 1 day PAIN SCORE: Non-responsive. LOCATION: Bilateral abdomen. FINDINGS: The bowel gas is nonspecific. There are no signs of obstruction or free air for technique. No defini te calcified stones are identified for technique. There are degenerative changes with osteopenia lumb ar scoliosis and lower lumbar spine. CONCLUSION: Nonspecific abdomen. Deacon Forbes MD on April 25, 2017 at 10:39 Board Certified Radiologist. This report was verified electronically.
[2017-04-25] MEDS ORDERED: MAGNESIUM HYDROXIDE SUSP 30 ML CUP PO PRN (10:45)
[2017-04-25] MEDS ORDERED: BISACODYL 10 MG SUPP RECTAL PRN (10:45)
[2017-04-25] MEDS ORDERED: LACTULOSE SYRUP 20 GM/30 ML CUP PO PRN (10:45)
[2017-04-25] MEDS ORDERED: SENNOSIDES 8.6 MG TAB PO PRN (10:45)
[2017-04-25] MEDS ORDERED: NALOXONE HCL 0.4 MG/ML AMP IV PRN (10:45)
[2017-04-25] MEDS ORDERED: SODIUM CHLORIDE 0.9% FLUSH 10 ML FLUSH IV FLUSH PRN (10:45)
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
[2017-04-25] MEDS ORDERED: EPINEPHrine HCL (1:10,000) 1 MG/10 ML SYRINGE OTHER ONE (16:27)
[2017-04-25] MEDS ORDERED: PROPOFOL 200 MG/20 ML AMP IV PUSH ONE (16:48)
--- NOTE | 2017-04-25 16:48 | HHI.GIFU ---
Subjective Remarks immediate postop note: EGD with control of bleeding Findings: Esophagus: normal Stomach Large clot and blood in fundus, unable to clear and examine there. Duodenum: large DU in the bulb at 12:00 Clot over lying was suctioned off. TWo clipas applied to the visible vessel in center. 4cc epi injected. Imp: bleeding from DU Rec: Protonix drip. at risk for rebleeding. Objective Vitals I&O Vital Signs Date Time Temp Pulse Resp B/P Pulse Ox O2 Delivery O2 Flow Rate FiO2 04/25/17 15:08 95.7 83 16 140/98 96 04/25/17 14:50 96.3 88 16 121/68 100 04/25/17 14:28 97.4 90 19 162/77 100 04/25/17 12:15 98.8 100 18 109/56 100 Nasal Cannula 2 04/25/17 12:00 99.4 96 18 107/60 100 Nasal Cannula 2 04/25/17 10:20 97 18 117/53 100 Nasal Cannula 2 04/25/17 09:36 99.2 97 18 117/53 97 Room Air 04/25/17 09:36 18 04/25/17 09:36 98 18 117/53 96 Room Air Laboratory Laboratory Tests Test 04/25/17 04/25/17 04/25/17 04/25/17 09:15 09:40 10:10 10:40 White Blood Count 27.5 Red Blood Count 2.04 Hemoglobin 6.4 Hematocrit 19.7 Mean Corpuscular Volume 96.3 Mean Corpuscular Hemoglobin 31.3 Mean Corpuscular Hemoglobin 32.5 Concent Red Cell Distribution Width 14.3 Platelet Count 424 Mean Platelet Volume 7.6 Neutrophils (%) (Auto) Lymphocytes (%) (Auto) Monocytes (%) (Auto) Eosinophils (%) (Auto) Basophils (%) (Auto) Neutrophils # (Auto) Lymphocytes # (Auto) Monocytes # (Auto) Eosinophils # (Auto) Basophils # (Auto) CBC Comment AUTO DIFF Differential Total Cells 100 Counted Neutrophils % (Manual) 95 Band Neutrophils % 1 Lymphocytes % 3 Monocytes % 1 Neutrophils # (Manual) 26.4 Differential Comment FINAL DIFF MANUAL Platelet Estimate HIGH Platelet Morphology Comment NORMAL Prothrombin Time 13.6 Prothromb Time International 1.2 Ratio Activated Partial 21.4 Thromboplast Time Sodium Level 139 Potassium Level 5.2 Chloride Level 102 Carbon Dioxide Level 20.9 Anion Gap 16 Blood Urea Nitrogen 46 Creatinine 1.70 Estimat Glomerular Filtration 29 Rate Random Glucose 187 Calcium Level 8.2 Total Bilirubin 0.6 Aspartate Amino Transf 134 (AST/SGOT) Alanine Aminotransferase 117 (ALT/SGPT) Alkaline Phosphatase 97 Total Protein 6.1 Albumin 2.2 Blood Type AB POSITIVE AB POSITIVE Antibody Screen NEGATIVE Blood Bank Comment Crossmatch Leukocyte-Reduced Red Blood Cells Physical Exam HEENT: Pupils round and reactive to light; normocephalic; atraumatic; no jaundice. Throat is clear. NECK: Neck is supple, no JVD, no lymphadenopathy. CHEST: Chest is clear to auscultation and percussion. CARDIAC: Regular rate and rhythm with no murmur gallop or rubs. ABDOMEN: Soft, nondistended, nontender; no hepatosplenomegaly; bowel sounds are present in all four quadrants. EXTREMITIES: No clubbing, cyanosis, or edema. SKIN: Normal; no rash; no jaundice. CARTOGRAPHIC AIDE: Does not communicate much. Does not answer questions Assessment and Plan Plan ASSESSMENT: - GIB. This is a 81 year old [place] female who speaks limited Maltese who was sent from [facility] for melena. Attempted to use [employer] Service #[id number] Tash, patient did not respond to process development chemist, although she does nod yes/no to simple questions. Per daughter, Olinda Ortega at [phone], she has never had any GI bleeding in past and never had egd/ colonoscopy. She was recently hospitalized and had HH 7.6/22.5 on 04/22. She started having dark melanotic stool in rehab, sent to the ER, has since had 2 large melanotic stools with slight maroon tint. HH 6.4/19.7. Spoke to the daughter re: further evaluation with EGD- procedure, risks, benefits and she would like to proceed. - Anemia secondary to acute blood loss. HH 6.4/19.7. 1/2 #prbc. - Leukocytosis. WBC 27.5. - VONDA with electrolyte abnormalities, Creat 1.70 - DM, HTN, Hx dural mass. - EGD on 04/25 shows large chronic DU with overlying clot and visible vessel. Injected with epi and two clips placed. At risk for rebleeding. Lots of clot and blood in fundus, could not see to rule out lesion there. PLAN: - Clear liquid diet. Protonix gtt - Monitor HH - Transfuse as necessary - Supportive care - If rebleeds probably needs Interventional radiology to embolize. - Consider repeat EGD tomorrow or friday to rule out lesion in the fundus. Ramesh Zhou MD Apr 25, 2017 16:48
[2017-04-25] MEDS: SODIUM CHLORIDE 1 GRAM TAB PO SCH (17:53)
[2017-04-25] MEDS: FUROSEMIDE 20 MG TAB PO SCH (17:54)
[2017-04-25] MEDS ORDERED: DO NOT ADM ANY ANTICOAGULANT DRUGS PRN (20:00)
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
[2017-04-25] MEDS: SODIUM CHLORIDE 0.9% FLUSH 10 ML FLUSH IV FLUSH SCH (20:29)
[2017-04-25] MEDS: DOCUSATE SODIUM 50 MG/SENNA 8.6 MG TAB PO SCH (20:29)
[2017-04-25 21:14] LABS: HEMATOCRIT 30.5 % (35.0-46.0)
[2017-04-25] MEDS: BENZONATATE 100 MG CAP PO PRN (22:34)
--- NOTE | 2017-04-25 23:26 | MR ---
cc: PHILIPPE GARY MD, HAROLD H. MD DATE 04/25/2017 PROCEDURE Esophagogastroduodenoscopy with control of bleeding. INDICATION Upper GI bleed REEFERRING BY Dr. Gary SEDATION General endotracheal anesthesia. PROCEDURE IN DETAIL After informed consent was obtained, the patient was taken into the operating room. She was given general endotracheal anesthesia. After adequate sedation was achieved, the Pentax video gastroscope was inserted in the oropharynx and advanced into the upper esophagus. There was some fresh blood there. This was suctioned carefully. The scope was advanced down into the stomach. There was a large clot with red blood as well in the fundus of the stomach. This I was unable to clear away and examine. The scope was advanced around this and into the antrum. The gastric antrum was washed and there were no ulcers there. The scope was advanced through the pylorus and into the duodenum where there was a large clot overlying a large chronic duodenal ulcer. The scope was advanced beyond this into the descending duodenum which appeared clear. The scope was then withdrawn back into the bulb. It was withdrawn into the stomach and a retroflex exam was performed. There was clot and blood in the fundus. Multiple attempts were made to suction this clear, but it was unsuccessful. The scope was then advanced back into the bulb. The clot was suctioned off and there was what appeared to be a visible vessel. This was injected with 4 mL of epinephrine at 1:10,000. It was decided then to attempt to place a clip on the visible vessel. This was accomplished with two clips and the site appeared stable. The scope was then withdrawn, removing as much air as possible. Then the scope was withdrawn through the esophagus out the mouth and the procedure was terminated. She tolerated the procedure well and was returned to the recovery area in stable condition following extubation. FINDINGS 1. The esophagus was normal except for the blood that was initially present there. 2. In the stomach, there was a large clot with blood in the fundus. This was mostly liquid dark blood although Some of it had a reddish hue. There did not appear to be any active bleeding there. I was unable to clear this and examine it to exclude an ulcer at that site. 4. In the duodenum, there was a large ulcer in the bulb at 12 o'clock. There was a clot overlying this and it was suctioned off revealing a visible vessel. Two clips were applied to the visible vessel after injecting with epinephrine 4 mL. At the end of the procedure, it was hemostatic. 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 RECOMMENDATIONS 1. Continue Protonix drip. 2. The patient is at risk for rebleeding 3. I believe she will tolerate clear liquid diet tonight and follow closely. 4. If she rebleeds, treatment with interventional radiology embolization might be the best option given the chronic nature of the ulcer. Ramesh Zhou MD [facility]/ /6:22 PM /11:18 PM
[2017-04-26] VITALS (7 sets, daily range): BP systolic 130–168; BP diastolic 61–79; PULSE 78–99; RESP 16–20; TEMP 96.8–98.2; O2SAT 92–99
[2017-04-26] MEDS: PANTOPRAZOLE INJ 80 MG in SODIUM CHLORIDE 0.9% INJ 100 ML IV SCH ×2 (05:38→15:30)
[2017-04-26 07:33] LABS: AUTOMATED NEUTROPHIL # 18.8 TH/MM3 (1.8-7.7); BASOPHIL # 0.1 TH/MM3 (0-0.2); BASOPHIL % 0.2 % (0.0-2.0); EOSINOPHIL % 0.2 % (0.0-4.0); HEMATOCRIT 25.6 % (35.0-46.0); HEMO FLAGS DIFF FINAL; LYMPHOCYTE # 1.5 TH/MM3 (1.0-4.8); MEAN CELL VOLUME 88.6 FL (80.0-100.0); MEAN CORPUSCULAR HEMOGLOBIN 29.4 PG (27.0-34.0); MEAN CORPUSCULAR HGB CONC 33.1 % (32.0-36.0); MONO % 3.1 % (0.0-8.0); NEUT % 89.5 % (16.0-70.0); PLATELET COUNT 250 TH/MM3 (150-450); RED BLOOD COUNT 2.89 MIL/MM3 (4.00-5.30)
[2017-04-26] MEDS: SODIUM CHLORIDE 1 GRAM TAB PO SCH ×3 (08:12→17:47)
[2017-04-26] MEDS: DOCUSATE SODIUM 50 MG/SENNA 8.6 MG TAB PO SCH ×2 (08:12→20:47)
[2017-04-26] MEDS: SODIUM CHLORIDE 0.9% FLUSH 10 ML FLUSH IV FLUSH SCH ×2 (08:13→20:50)
[2017-04-26] MEDS: FUROSEMIDE 20 MG TAB PO SCH ×2 (08:13→17:47)
[2017-04-26 08:26] LABS: BICARBONATE 25.4 MEQ/L (21.0-32.0); POTASSIUM 3.2 MEQ/L (3.5-5.1)
--- NOTE | 2017-04-26 10:42 | EKG ---
Date Performed: 04/25/2017 Time Performed: 09:27:12 PTAGE: 81 years EKG: SINUS TACHYCARDIA WITH OCCASIONAL SUPRAVENTRICULAR PREMATURE COMPLEXES MODERATE ST DEPRESSI ON ABNORMAL ECG PREVIOUS TRACING : 04/12/2017 15.53 DOCTOR: Robi Guadarrama Interpretating Date/Time 04/26/2017 10:40:44
[2017-04-26] MEDS: POTASSIUM CHLOR 20 MEQ PREMIX 100 ML IV SCH ×3 (13:57→17:47)
[2017-04-26] MEDS: ENALAPRILAT 1.25 MG/ML VIAL IV PUSH PRN (13:59)
--- NOTE | 2017-04-26 14:18 | HHI.GIFU ---
Subjective Remarks Pt resting in bed, begging for water. Says no pain, no n/v. (Lakeisha Alatorre) Objective Vitals I&O Vital Signs Date Time Temp Pulse Resp B/P Pulse Ox O2 Delivery O2 Flow Rate FiO2 04/26/17 11:41 97.6 88 20 160/70 96 04/26/17 07:00 98.2 87 20 168/79 99 04/26/17 04:00 97.0 99 17 147/70 98 04/26/17 04:00 92 04/26/17 00:00 84 04/26/17 00:00 97.8 92 16 148/67 96 04/25/17 20:00 98.0 99 17 130/63 97 04/25/17 20:00 91 04/25/17 17:32 96.9 87 19 186/69 99 04/25/17 17:15 97.5 96 16 140/69 99 Nasal Cannula 2 04/25/17 17:00 94 16 138/81 99 Nasal Cannula 2 04/25/17 16:55 97.5 95 16 141/72 98 Nasal Cannula 2 04/25/17 15:08 95.7 83 16 140/98 96 04/25/17 14:50 96.3 88 16 121/68 100 04/25/17 14:28 97.4 90 19 162/77 100 I/O 04/25/17 04/25/17 04/25/17 04/26/17 04/26/17 04/26/17 07:00 15:00 23:00 07:00 15:00 23:00 Intake Total 930 ml 120 ml Output Total 1100 ml 400 ml Balance -170 ml -280 ml Intake Oral 480 ml 120 ml Packed Cells 250 ml Other 200 ml Output Urine Total 1100 ml 400 ml Laboratory Laboratory Tests Test 04/25/17 04/25/17 04/26/17 04/26/17 19:15 20:52 05:52 13:41 Crossmatch Leukocyte-Reduced Red Blood Cells Blood Bank Comment Hemoglobin 10.2 8.5 9.4 Hematocrit 30.5 25.6 28.0 White Blood Count 21.0 Red Blood Count 2.89 Mean Corpuscular Volume 88.6 Mean Corpuscular Hemoglobin 29.4 Mean Corpuscular Hemoglobin 33.1 Concent Red Cell Distribution Width 20.0 Platelet Count 250 Mean Platelet Volume 7.3 Neutrophils (%) (Auto) 89.5 Lymphocytes (%) (Auto) 7.0 Monocytes (%) (Auto) 3.1 Eosinophils (%) (Auto) 0.2 Basophils (%) (Auto) 0.2 Neutrophils # (Auto) 18.8 Lymphocytes # (Auto) 1.5 Monocytes # (Auto) 0.6 Eosinophils # (Auto) 0.0 Basophils # (Auto) 0.1 CBC Comment DIFF FINAL Differential Comment Sodium Level 143 Potassium Level 3.2 Chloride Level 110 Carbon Dioxide Level 25.4 Anion Gap 8 Blood Urea Nitrogen 57 Creatinine 0.79 Estimat Glomerular Filtration 70 Rate Random Glucose 135 Calcium Level 7.9 Imaging Last Impressions Abdomen X-Ray 04/25/17 0918 Signed Impressions: Service Date/Time: Tuesday, April 25, 2017 10:05 - CONCLUSION: Nonspecific abdomen. Deacon Forbes MD Physical Exam HEENT: PERRL; normocephalic; atraumatic; no jaundice. CHEST: CTA CARDIAC: RRR ABDOMEN: Soft, nondistended, nontender; no hepatosplenomegaly; bowel sounds are present in all four quadrants. EXTREMITIES: No clubbing, cyanosis, or edema. SKIN: Normal; no rash; no jaundice. AUXILIARY POWERPLANT OPERATOR: alert (Lakeisha Alatorre [employer] DRY HOUSE OPERATOR) Assessment and Plan Plan ASSESSMENT: - GIB. This is a 81 year old Bulgarian female who speaks limited Romansh who was sent from [facility] for melena. Attempted to use [employer] #[id number] Tash, patient did not respond to auto leasing manager, although she does nod yes/no to simple questions. Per daughter, Olinda Ortega at [phone], she has never had any GI bleeding in past and never had egd/ colonoscopy. She was recently hospitalized and had HH 7.6/22.5 on 04/22. She started having dark melanotic stool in rehab, sent to the ER, has since had 2 large melanotic stools with slight maroon tint. s/p EGD 04-25-17--> bleeding likely from chronic duod ulcer with visible vessel - Anemia secondary to acute blood loss. improved Hgb 9.4 today per repeat HH. - Leukocytosis. improving - VONDA with electrolyte abnormalities, creat improving - DM, HTN, Hx dural mass. PLAN: - ok to start Clear liquid diet. - Protonix gtt - Monitor HH - Transfuse as necessary - Supportive care - If rebleeds probably needs Interventional radiology to embolize. - Consider repeat EGD to r/o lesion in fundus This pt seen by myself and Dr Weaver and this note is written on his behalf (Lakeisha Alatorre) Physician Comments patient was seen and examined, agree with above note and plan, HGB stable, we will advance diet as tolerated, if HGB stable in am we will send her home if heg stable (Lloyd Weaver MD) Lakeisha Alatorre Apr 26, 2017 14:18 Lloyd Weaver MD Apr 26, 2017 16:49
--- NOTE | 2017-04-26 17:13 | HHI.PR ---
Subjective Interval History Sleepy, arousable, appears to deny complaints, Review of Systems Constitutional Constitutional Remarks Difficult to obtain Vitals/Results Intake & Output 04/25/17 04/25/17 04/26/17 15:00 23:00 07:00 Intake Total 930 ml 120 ml Output Total 1100 ml 400 ml Balance -170 ml -280 ml Intake Oral 480 ml 120 ml Packed Cells 250 ml Other 200 ml Output Urine Total 1100 ml 400 ml Vital Signs Vital Signs Date Time Temp Pulse Resp B/P Pulse Ox O2 Delivery O2 Flow Rate FiO2 04/26/17 15:35 96.8 83 20 130/61 92 04/26/17 11:41 97.6 88 20 160/70 96 04/26/17 08:00 78 04/26/17 07:00 98.2 87 20 168/79 99 04/26/17 04:00 97.0 99 17 147/70 98 04/26/17 04:00 92 04/26/17 00:00 84 04/26/17 00:00 97.8 92 16 148/67 96 04/25/17 20:00 98.0 99 17 130/63 97 04/25/17 20:00 91 04/25/17 17:32 96.9 87 19 186/69 99 04/25/17 17:15 97.5 96 16 140/69 99 Nasal Cannula 2 CBC/BMP: 04/26/17 1341 04/26/17 0552 Lab Results Laboratory Tests Test 04/25/17 04/25/17 04/26/17 04/26/17 19:15 20:52 05:52 13:41 Crossmatch Leukocyte-Reduced Red Blood Cells Blood Bank Comment Hemoglobin 10.2 GM/DL 8.5 GM/DL 9.4 GM/DL Hematocrit 30.5 % 25.6 % 28.0 % White Blood Count 21.0 TH/MM3 Red Blood Count 2.89 MIL/MM3 Mean Corpuscular Volume 88.6 FL Mean Corpuscular Hemoglobin 29.4 PG Mean Corpuscular Hemoglobin 33.1 % Concent Red Cell Distribution Width 20.0 % Platelet Count 250 TH/MM3 Mean Platelet Volume 7.3 FL Neutrophils (%) (Auto) 89.5 % Lymphocytes (%) (Auto) 7.0 % Monocytes (%) (Auto) 3.1 % Eosinophils (%) (Auto) 0.2 % Basophils (%) (Auto) 0.2 % Neutrophils # (Auto) 18.8 TH/MM3 Lymphocytes # (Auto) 1.5 TH/MM3 Monocytes # (Auto) 0.6 TH/MM3 Eosinophils # (Auto) 0.0 TH/MM3 Basophils # (Auto) 0.1 TH/MM3 CBC Comment DIFF FINAL Differential Comment Sodium Level 143 MEQ/L Potassium Level 3.2 MEQ/L Chloride Level 110 MEQ/L Carbon Dioxide Level 25.4 MEQ/L Anion Gap 8 MEQ/L Blood Urea Nitrogen 57 MG/DL Creatinine 0.79 MG/DL Estimat Glomerular Filtration 70 ML/MIN Rate Random Glucose 135 MG/DL Calcium Level 7.9 MG/DL Physical Exam General General Appearance: Comfortable, Pale Eyes Eye Exam: Pupils Reactive Ears & Nose Ears & Nose Exam: Nasal Mucosa [place] Throat Throat Exam: Oral Mucosa [place] & Moist Neck Neck Exam: Trachea Midline Pulmonary Resp Exam: Breath Sounds Equal Cardiology CV Exam: Normal Sinus Rhythm Gastrointestinal/Abdomen GI Exam: Non-Tender, Bowel Sounds Present Musculoskeletal MS Exam: Normal Tone Integumentary Skin Exam: Warm, Dry Neurologic Neuro Exam: Awake, Stuporous VTE Prophylaxis VTE Prophylaxis Device: SCDs PUD Prophylasis PUD Prophylaxis: Protonix Assessment/Plan Assessment/Plan Assessment Gastrointestinal bleeding Severe acute anemia of blood loss on admission, improved Status post transfusion 2 units of packed red blood cells Status post EGD on 04/25/17 Large duodenal ulcer diagnosed with a large clot Leukocytosis Hypokalemia, replace Metabolic acidosis Brain mass SIADH Mildly elevated liver enzymes Chronic kidney disease Diabetes mellitus Management Clear liquid diet Protonix GI following Follow sodium level Follow potassium level Follow renal indices Possible discharge tomorrow Discussed with nurse Poor prognosis DNR status 35 minutes spent Savannah Sanford MD Apr 26, 2017 17:13
[2017-04-26] MEDS: POTASSIUM CHLORIDE 25 MEQ EFFERVESCENT TAB NG SCH (17:30)
[2017-04-27] VITALS (12 sets, daily range): BP systolic 143–188; BP diastolic 65–88; PULSE 71–99; RESP 18–19; TEMP 96.8–98.8; O2SAT 94–98
[2017-04-27] MEDS: ENALAPRILAT 1.25 MG/ML VIAL IV PUSH PRN ×3 (00:02→12:04)
[2017-04-27] MEDS: PANTOPRAZOLE INJ 80 MG in SODIUM CHLORIDE 0.9% INJ 100 ML IV SCH ×2 (01:45→11:27)
[2017-04-27 08:16] LABS: HEMATOCRIT 26.5 % (35.0-46.0); MEAN CELL VOLUME 89.7 FL (80.0-100.0); MEAN CORPUSCULAR HEMOGLOBIN 30.2 PG (27.0-34.0); MEAN CORPUSCULAR HGB CONC 33.7 % (32.0-36.0); PLATELET COUNT 225 TH/MM3 (150-450); RED BLOOD COUNT 2.96 MIL/MM3 (4.00-5.30); RED CELL DISTRIBUTION WIDTH 19.9 % (11.6-17.2); REVIEW FLAG FINAL; WHITE BLOOD COUNT 21.6 TH/MM3 (4.0-11.0)
[2017-04-27 08:45] LABS: BICARBONATE 28.2 MEQ/L (21.0-32.0); MAGNESIUM 1.8 MG/DL (1.5-2.5)
[2017-04-27] MEDS: POTASSIUM CHLORIDE 25 MEQ EFFERVESCENT TAB NG SCH (09:02)
[2017-04-27] MEDS: FUROSEMIDE 20 MG TAB PO SCH ×2 (09:03→18:10)
[2017-04-27] MEDS: DOCUSATE SODIUM 50 MG/SENNA 8.6 MG TAB PO SCH ×2 (09:03→20:21)
[2017-04-27] MEDS: SODIUM CHLORIDE 0.9% FLUSH 10 ML FLUSH IV FLUSH SCH ×2 (09:03→20:21)
[2017-04-27] MEDS: SODIUM CHLORIDE 1 GRAM TAB PO SCH ×3 (09:03→18:11)
--- NOTE | 2017-04-27 12:53 | HHI.GIFU ---
Subjective Remarks Pt eating. Denies n/v, pain. (Lakeisha Alatorre) Objective Vitals I&O Vital Signs Date Time Temp Pulse Resp B/P Pulse Ox O2 Delivery O2 Flow Rate FiO2 04/27/17 12:05 97.0 80 19 182/88 95 04/27/17 08:00 96.8 81 19 146/68 94 04/27/17 06:23 80 176/77 04/27/17 04:00 71 04/27/17 04:00 97.5 82 18 174/74 96 04/27/17 01:00 82 143/65 04/27/17 00:00 85 04/27/17 00:00 98.7 89 19 162/74 96 04/26/17 20:00 97.7 95 18 136/63 96 04/26/17 20:00 90 04/26/17 15:35 96.8 83 20 130/61 92 I/O 04/26/17 04/26/17 04/26/17 04/27/17 04/27/17 04/27/17 06:59 14:59 22:59 06:59 14:59 22:59 Intake Total 120 ml 0 ml 480 ml 240 ml Output Total 400 ml 1150 ml 600 ml 600 ml Balance -280 ml -1150 ml -120 ml -360 ml Intake Oral 120 ml 0 ml 480 ml 240 ml Output Urine Total 400 ml 1150 ml 600 ml 600 ml # Bowel Movements 0 Laboratory Laboratory Tests Test 04/26/17 04/27/17 13:41 06:36 Hemoglobin 9.4 8.9 Hematocrit 28.0 26.5 White Blood Count 21.6 Red Blood Count 2.96 Mean Corpuscular Volume 89.7 Mean Corpuscular Hemoglobin 30.2 Mean Corpuscular Hemoglobin 33.7 Concent Red Cell Distribution Width 19.9 Platelet Count 225 Mean Platelet Volume 7.9 Sodium Level 146 Potassium Level 3.0 Chloride Level 109 Carbon Dioxide Level 28.2 Anion Gap 9 Blood Urea Nitrogen 29 Creatinine 0.64 Estimat Glomerular Filtration 89 Rate Random Glucose 135 Calcium Level 7.8 Magnesium Level 1.8 Physical Exam HEENT: PERRL; normocephalic; atraumatic; no jaundice. CHEST: CTA CARDIAC: RRR ABDOMEN: Soft, nondistended, nontender; no hepatosplenomegaly; bowel sounds are present in all four quadrants. EXTREMITIES: No clubbing, cyanosis, or edema. SKIN: Normal; no rash; no jaundice. bruising right hand HEALTH CARE COORDINATOR: alert (Lakeisha Alatorre) Assessment and Plan Plan ASSESSMENT: - GIB. This is a 81 year old [place] female who speaks limited Green[place]ic who was sent from [facility] for melena. Attempted to use [facility] Service #[id number] Tash, patient did not respond to spanish interpreter/translator, although she does nod yes/no to simple questions. Per daughter, Olinda Ortega at [phone], she has never had any GI bleeding in past and never had egd/ colonoscopy. She was recently hospitalized and had HH 7.6/22.5 on 04/22. She started having dark melanotic stool in rehab, sent to the ER, has since had 2 large melanotic stools with slight maroon tint. 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 improving - VONDA with electrolyte abnormalities, creat improving - DM, HTN, Hx dural mass. PLAN: - BARB - Protonix gtt - Monitor HH - Transfuse as necessary - Supportive care - If rebleeds probably needs Interventional radiology to embolize. - Repeat HH as outpatient on Friday - ok to d/c from GI standpoint when tolerating reg diet This pt seen by myself and Dr Weaver and this note is written on his behalf (Lakeisha Alatorre) Physician Comments patient was seen and examined, agree with above note and plan, HGB stable, advance diet as tolerated, if HGB stable in am, could be DC from GI stand ( Lloyd Weaver MD) Lakeisha Alatorre Apr 27, 2017 12:53 Lloyd Weaver MD Apr 27, 2017 13:12
--- NOTE | 2017-04-27 15:46 | HHI.PR ---
Subjective Interval History Alert, verbal, was out of the bed, no abdominal pain, eating without problems Review of Systems Constitutional Constitutional Remarks Joint pain, not ambulating, 10 systems reviewed otherwise negative Vitals/Results Intake & Output 04/26/17 04/26/17 04/27/17 15:00 23:00 07:00 Intake Total 0 ml 480 ml 240 ml Output Total 1150 ml 600 ml 600 ml Balance -1150 ml -120 ml -360 ml Intake Oral 0 ml 480 ml 240 ml Output Urine Total 1150 ml 600 ml 600 ml # Bowel Movements 0 Vital Signs Vital Signs Date Time Temp Pulse Resp B/P Pulse Ox O2 Delivery O2 Flow Rate FiO2 04/27/17 15:04 188/87 04/27/17 12:05 97.0 80 19 182/88 95 04/27/17 08:00 96.8 81 19 146/68 94 04/27/17 06:23 80 176/77 04/27/17 04:00 71 04/27/17 04:00 97.5 82 18 174/74 96 04/27/17 01:00 82 143/65 04/27/17 00:00 85 04/27/17 00:00 98.7 89 19 162/74 96 04/26/17 20:00 97.7 95 18 136/63 96 04/26/17 20:00 90 CBC/BMP: 04/27/17 0636 04/27/17 0636 Lab Results Laboratory Tests Test 04/27/17 06:36 White Blood Count 21.6 TH/MM3 Red Blood Count 2.96 MIL/MM3 Hemoglobin 8.9 GM/DL Hematocrit 26.5 % Mean Corpuscular Volume 89.7 FL Mean Corpuscular Hemoglobin 30.2 PG Mean Corpuscular Hemoglobin 33.7 % Concent Red Cell Distribution Width 19.9 % Platelet Count 225 TH/MM3 Mean Platelet Volume 7.9 FL Sodium Level 146 MEQ/L Potassium Level 3.0 MEQ/L Chloride Level 109 MEQ/L Carbon Dioxide Level 28.2 MEQ/L Anion Gap 9 MEQ/L Blood Urea Nitrogen 29 MG/DL Creatinine 0.64 MG/DL Estimat Glomerular Filtration 89 ML/MIN Rate Random Glucose 135 MG/DL Calcium Level 7.8 MG/DL Magnesium Level 1.8 MG/DL Physical Exam General General Appearance: Comfortable, Pale Eyes Eye Exam: Pupils Reactive Ears & Nose Ears & Nose Exam: Nasal Mucosa [place] Throat Throat Exam: Oral Mucosa [place] & Moist Neck Neck Exam: Trachea Midline Pulmonary Resp Exam: Breath Sounds Equal Cardiology CV Exam: Normal Sinus Rhythm Gastrointestinal/Abdomen GI Exam: Non-Tender, Bowel Sounds Present Musculoskeletal MS Exam: Normal Tone Integumentary Skin Exam: Warm, Dry Neurologic Neuro Exam: Awake, Stuporous VTE Prophylaxis VTE Prophylaxis Device: SCDs PUD Prophylasis PUD Prophylaxis: Protonix Assessment/Plan Assessment/Plan Assessment Hypokalemia, replace Poorly controlled hypertension Leukocytosis Gastrointestinal bleeding on admission, now stopped Severe acute anemia of blood loss on admission, improved Status post transfusion 2 units of packed red blood cells Status post EGD on 04/25/17 Large duodenal ulcer diagnosed with a large clot Brain mass SIADH Mildly elevated liver enzymes Chronic kidney disease Diabetes mellitus Management Advance diet Protonix GI following Follow sodium level Follow potassium level, replace as needed increase Lasix dose Reduce sodium dose Follow renal indices Discussed with nurse Poor prognosis DNR status 35 minutes spent Savannah Sanford MD Apr 27, 2017 15:45
[2017-04-27] MEDS: cloNIDine HCL 0.1 MG TAB PO PRN (16:51)
[2017-04-27] MEDS: POTASSIUM CHLORIDE 25 MEQ EFFERVESCENT TAB PO SCH (17:35)
[2017-04-28] VITALS (10 sets, daily range): BP systolic 125–167; BP diastolic 60–77; PULSE 69–97; RESP 18–20; TEMP 98.6–99.7; O2SAT 94–99
[2017-04-28] MEDS: BENZONATATE 100 MG CAP PO PRN ×2 (00:04→20:40)
[2017-04-28] MEDS: cloNIDine HCL 0.1 MG TAB PO PRN (08:40)
[2017-04-28] MEDS: FUROSEMIDE 20 MG TAB PO SCH ×2 (08:40→17:12)
[2017-04-28] MEDS: SODIUM CHLORIDE 0.9% FLUSH 10 ML FLUSH IV FLUSH SCH ×2 (08:40→20:42)
[2017-04-28] MEDS: SODIUM CHLORIDE 1 GRAM TAB PO SCH ×3 (08:41→17:11)
[2017-04-28] MEDS: DOCUSATE SODIUM 50 MG/SENNA 8.6 MG TAB PO SCH ×2 (08:41→20:38)
[2017-04-28] MEDS: POTASSIUM CHLORIDE 25 MEQ EFFERVESCENT TAB PO SCH ×3 (08:41→17:11)
--- NOTE | 2017-04-28 12:53 | HHI.PR ---
Subjective Interval History Alert, wants to get out of the bed, mildly agitated, Review of Systems Constitutional Constitutional Remarks As detailed above, 10 systems reviewed otherwise negative Vitals/Results Intake & Output 04/27/17 04/27/17 04/28/17 15:00 23:00 07:00 Intake Total 1410 ml 480 ml 120 ml Output Total 750 ml 450 ml 750 ml Balance 660 ml 30 ml -630 ml Intake Oral 460 ml 480 ml 120 ml IV Total 950 ml Output Urine Total 750 ml 450 ml 750 ml Vital Signs Vital Signs Date Time Temp Pulse Resp B/P Pulse Ox O2 Delivery O2 Flow Rate FiO2 04/28/17 08:00 99.4 74 167/72 94 04/28/17 04:00 99.7 82 19 154/73 97 04/28/17 04:00 81 04/28/17 00:00 77 04/28/17 00:00 99.2 97 18 131/68 98 04/27/17 20:00 98.1 77 19 157/70 98 04/27/17 20:00 83 04/27/17 16:24 98.8 84 19 181/75 96 04/27/17 16:10 83 04/27/17 15:04 188/87 CBC/BMP: 04/27/17 0636 04/27/17 0636 Physical Exam General General Appearance: Comfortable, Pale Eyes Eye Exam: Pupils Reactive Ears & Nose Ears & Nose Exam: Nasal Mucosa [place] Throat Throat Exam: Oral Mucosa [place] & Moist Neck Neck Exam: Trachea Midline Pulmonary Resp Exam: Breath Sounds Equal Cardiology CV Exam: Normal Sinus Rhythm Gastrointestinal/Abdomen GI Exam: Non-Tender, Bowel Sounds Present Musculoskeletal MS Exam: Normal Tone Integumentary Skin Exam: Warm, Dry Neurologic Neuro Exam: Awake, Stuporous VTE Prophylaxis VTE Prophylaxis Device: SCDs PUD Prophylasis PUD Prophylaxis: Protonix Assessment/Plan Assessment/Plan Assessment Hypokalemia, replace Poorly controlled hypertension Leukocytosis Gastrointestinal bleeding on admission, now black stool in the plexus heel Severe acute anemia of blood loss on admission, improved Status post transfusion 2 units of packed red blood cells Status post EGD on 04/25/17 

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
[2017-04-29] VITALS (10 sets, daily range): BP systolic 116–174; BP diastolic 54–74; PULSE 66–84; RESP 16–20; TEMP 97.5–99.7; O2SAT 93–100
[2017-04-29] MEDS: cloNIDine HCL 0.1 MG TAB PO PRN (05:49)
[2017-04-29] MEDS: SODIUM CHLORIDE 0.9% FLUSH 10 ML FLUSH IV FLUSH SCH ×2 (08:26→21:25)
[2017-04-29] MEDS: DOCUSATE SODIUM 50 MG/SENNA 8.6 MG TAB PO SCH ×2 (08:26→21:00)
[2017-04-29] MEDS: SODIUM CHLORIDE 1 GRAM TAB PO SCH ×3 (08:26→17:26)
[2017-04-29] MEDS: POTASSIUM CHLORIDE 25 MEQ EFFERVESCENT TAB PO SCH ×3 (08:27→17:28)
[2017-04-29] MEDS: FUROSEMIDE 20 MG TAB PO SCH ×2 (08:29→17:27)
[2017-04-29 15:11] LABS: BICARBONATE 29.8 MEQ/L (21.0-32.0); POTASSIUM 3.5 MEQ/L (3.5-5.1)
--- NOTE | 2017-04-29 17:25 | HHI.PR ---
Subjective History of Present Illness Alert, verbal, oriented to place and person, complaining of anal pain, asked the examiner to " give me something to make me " Review of Systems Constitutional Constitutional Remarks As detailed above, 10 systems reviewed otherwise negative, but not reliable Vitals/Results Intake & Output 04/28/17 04/28/17 04/29/17 14:59 22:59 06:59 Intake Total 600 ml Output Total 550 ml Balance 50 ml Intake Oral 600 ml Output Urine Total 550 ml Vital Signs Vital Signs Date Time Temp Pulse Resp B/P Pulse Ox O2 Delivery O2 Flow Rate FiO2 04/29/17 16:58 73 04/29/17 16:00 99.1 70 18 129/62 94 04/29/17 12:00 97.5 76 18 116/54 97 04/29/17 09:00 78 04/29/17 08:00 98.6 66 20 155/71 97 04/29/17 05:07 99.4 73 18 174/74 93 04/29/17 04:00 68 04/29/17 00:23 98.8 75 18 139/64 94 04/29/17 00:00 74 04/28/17 20:53 98.6 81 18 125/60 98 04/28/17 20:00 69 CBC/BMP: 04/27/17 0636 04/29/17 1414 Lab Results Laboratory Tests Test 04/29/17 14:14 Sodium Level 138 MEQ/L Potassium Level 3.5 MEQ/L Chloride Level 98 MEQ/L Carbon Dioxide Level 29.8 MEQ/L Anion Gap 10 MEQ/L Blood Urea Nitrogen 21 MG/DL Creatinine 0.89 MG/DL Estimat Glomerular Filtration 61 ML/MIN Rate Random Glucose 254 MG/DL Calcium Level 7.8 MG/DL Physical Exam General General Appearance: Comfortable, Pale Eyes Eye Exam: Pupils Reactive Ears & Nose Ears & Nose Exam: Nasal Mucosa [place] Throat Throat Exam: Oral Mucosa [place] & Moist Neck Neck Exam: Trachea Midline Pulmonary Resp Exam: Breath Sounds Equal Cardiology CV Exam: Normal Sinus Rhythm Gastrointestinal/Abdomen GI Exam: Non-Tender, Bowel Sounds Present Musculoskeletal MS Exam: Normal Tone Integumentary Skin Exam: Warm, Dry Neurologic Neuro Exam: Awake, Stuporous VTE Prophylaxis VTE Prophylaxis Device: SCDs PUD Prophylasis PUD Prophylaxis: Protonix Assessment/Plan Assessment/Plan Assessment Hypokalemia, replace hypertension Leukocytosis Gastrointestinal bleeding on admission, now black stool in the plexus heel Severe acute anemia of blood loss on admission, improved Status post transfusion 2 units of packed red blood cells Status post EGD on 04/25/17 Large duodenal ulcer diagnosed with a large clot Brain mass SIADH Mildly elevated liver enzymes Chronic kidney disease Diabetes mellitus Management Advance diet Protonix GI following Follow comfort care Lasix sodium chloride, by mouth palliative care following, thank you Discussed with nurse Poor prognosis DNR status Discontinue rectal tube Discharge to detention facility however plan has to be in place to stop any future admissions to avoid the same scenario happening again 35 minutes spent Savannah Sanford MD Apr 29, 2017 17:25
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
[2017-04-30] VITALS: BP 168/67; PULSE 65; PULSE 71; RESP 16; TEMP 98.4; O2SAT 94
[2017-04-30 04:00] VITALS: BP 171/76; PULSE 68; PULSE 71; RESP 16; TEMP 96.8; O2SAT 93
[2017-04-30 08:00] VITALS: BP 153/70; PULSE 66; RESP 20; TEMP 97.1; O2SAT 94
[2017-04-30] MEDS: SODIUM CHLORIDE 1 GRAM TAB PO SCH ×2 (08:13→12:19)
[2017-04-30] MEDS: FUROSEMIDE 20 MG TAB PO SCH (08:13)
[2017-04-30] MEDS: POTASSIUM CHLORIDE 25 MEQ EFFERVESCENT TAB PO SCH ×2 (08:13→12:20)
[2017-04-30] MEDS: DOCUSATE SODIUM 50 MG/SENNA 8.6 MG TAB PO SCH (08:13)
[2017-04-30] MEDS: SODIUM CHLORIDE 0.9% FLUSH 10 ML FLUSH IV FLUSH SCH (08:14)
[2017-04-30 08:39] VITALS: PULSE 75
[2017-04-30 12:29] VITALS: BP 140/74; PULSE 74; RESP 19; TEMP 98.4; O2SAT 91
--- NOTE | 2017-04-30 13:42 | HHI.PR ---
Subjective History of Present Illness Alert, verbal, oriented to place and person, asked the examiner again " give me something to make me Review of Systems Constitutional Constitutional Remarks As detailed above, 10 systems reviewed otherwise negative, but not reliable Vitals/Results Intake & Output 04/29/17 04/29/17 04/30/17 14:59 22:59 06:59 Intake Total 510 ml 200 ml Output Total 1250 ml 500 ml Balance -740 ml -300 ml Intake Oral 510 ml 200 ml Output Urine Total 1250 ml 500 ml # Bowel Movements 1 1 Vital Signs Vital Signs Date Time Temp Pulse Resp B/P Pulse Ox O2 Delivery O2 Flow Rate FiO2 04/30/17 12:29 98.4 74 19 140/74 91 04/30/17 08:39 75 04/30/17 08:00 97.1 66 20 153/70 94 04/30/17 04:00 68 04/30/17 04:00 96.8 71 16 171/76 93 04/30/17 00:00 98.4 65 16 168/67 94 04/30/17 00:00 71 04/29/17 20:00 99.7 84 16 135/59 100 04/29/17 20:00 84 04/29/17 16:58 73 04/29/17 16:00 99.1 70 18 129/62 94 CBC/BMP: 04/27/17 0636 04/29/17 1414 Lab Results Laboratory Tests Test 04/29/17 14:14 Sodium Level 138 MEQ/L Potassium Level 3.5 MEQ/L Chloride Level 98 MEQ/L Carbon Dioxide Level 29.8 MEQ/L Anion Gap 10 MEQ/L Blood Urea Nitrogen 21 MG/DL Creatinine 0.89 MG/DL Estimat Glomerular Filtration 61 ML/MIN Rate Random Glucose 254 MG/DL Calcium Level 7.8 MG/DL Physical Exam General General Appearance: Comfortable, Pale Eyes Eye Exam: Pupils Reactive Ears & Nose Ears & Nose Exam: Nasal Mucosa [place] Throat Throat Exam: Oral Mucosa [place] & Moist Neck Neck Exam: Trachea Midline Pulmonary Resp Exam: Breath Sounds Equal Cardiology CV Exam: Normal Sinus Rhythm Gastrointestinal/Abdomen GI Exam: Non-Tender, Bowel Sounds Present Musculoskeletal MS Exam: Normal Tone Integumentary Skin Exam: Warm, Dry Neurologic Neuro Exam: Awake, Stuporous VTE Prophylaxis VTE Prophylaxis Device: SCDs PUD Prophylasis PUD Prophylaxis: Protonix Assessment/Plan Assessment/Plan Assessment Leukocytosis Gastrointestinal bleeding on admission, now black stool in the plexus heel Severe acute anemia of blood loss on admission, improved Status post transfusion 2 units of packed red blood cells Status post EGD on 04/25/17 Large duodenal ulcer diagnosed with a large clot Brain mass SIADH Mildly elevated liver enzymes Chronic kidney disease Diabetes mellitus Management Protonix Follow comfort care palliative care following, thank you Discussed with nurse Poor prognosis DNR status Discharge to [facility] facility however plan has to be in place to stop any future admissions to avoid the same scenario happening again 40 minutes spent Discharge Minutes: 40 Savannah Sanford MD Apr 30, 2017 13:42
[2017-04-30] MEDS ORDERED: PANT40TA3 PO (13:45)
--- NOTE | 2017-04-30 13:55 | HHI.GIFU ---
Subjective Remarks Resting in bed. No n/v. No signs of bleeding. (Carleen Corona) Objective Vitals I&O Vital Signs Date Time Temp Pulse Resp B/P Pulse Ox O2 Delivery O2 Flow Rate FiO2 04/30/17 12:29 98.4 74 19 140/74 91 04/30/17 08:39 75 04/30/17 08:00 97.1 66 20 153/70 94 04/30/17 04:00 68 04/30/17 04:00 96.8 71 16 171/76 93 04/30/17 00:00 98.4 65 16 168/67 94 04/30/17 00:00 71 04/29/17 20:00 99.7 84 16 135/59 100 04/29/17 20:00 84 04/29/17 16:58 73 04/29/17 16:00 99.1 70 18 129/62 94 I/O 04/29/17 04/29/17 04/29/17 04/30/17 04/30/17 04/30/17 07:00 15:00 23:00 07:00 15:00 23:00 Intake Total 250 ml 260 ml 200 ml Output Total 500 ml 750 ml 500 ml Balance -250 ml -490 ml -300 ml Intake Oral 250 ml 260 ml 200 ml Output Urine Total 500 ml 750 ml 500 ml # Bowel Movements 1 1 Laboratory Laboratory Tests Test 04/29/17 14:14 Sodium Level 138 Potassium Level 3.5 Chloride Level 98 Carbon Dioxide Level 29.8 Anion Gap 10 Blood Urea Nitrogen 21 Creatinine 0.89 Estimat Glomerular Filtration 61 Rate Random Glucose 254 Calcium Level 7.8 Imaging Last Impressions Abdomen X-Ray 04/25/17917 Signed Impressions: Service Date/Time: Tuesday, April 25, 2017 10:05 - CONCLUSION: Nonspecific abdomen. K. Asim Forbes MD Physical Exam HEENT: Normocephalic; atraumatic CHEST: CTA CARDIAC: RRR ABDOMEN: Soft, nondistended, nontender; no hepatosplenomegaly; bowel sounds are present in all four quadrants. EXTREMITIES: No clubbing, cyanosis, or edema. SKIN: Normal; no rash; no jaundice. Right upper arm splint, drsg d/i OXYGEN EQUIPMENT AIDE: alert (Carleen Corona) Assessment and Plan Plan ASSESSMENT: - Upper GIB. This is a 81 year old English female who speaks limited Indonesian who was sent [facility]. Previously attempted to use [employer] [place] [employer] [facility] #[id number], but patient did not respond to air transport professionals, although she does nod yes/no to simple questions. S/P EGD (04/25/17)----> esophagus was normal except the blood that was initially present there. In the stomach, there was a large clot with blood in the fundus. this was mostly liquid dark blood although some of it had reddish hue. There did not appear to be any active bleeding there. I was unable to clear this and examine it to exclude an ulcer at that site. In the duodenum, there was a large ulcer in the bulb at 12 oclock. There was a clot overlying this and it was suctioned off revealing a visible vessel. Two clips were applied to the visible vessel after injecting with epinephrine 4 mL. At the end of the procedure it was hemostatic. S/P 2 units PRBC. 8.9/26.5. Add PPI - Large duodenal ulcer. S/P tx as above. Add PPI - Anemia secondary to acute blood loss. S/P 2 units PRBC. HH stable 8.9/26.5. - Leukocytosis. improving - VONDA with electrolyte abnormalities, creat improving - DM, HTN, Hx dural mass. PLAN: - BARB - Protonix 40mg po BID - Monitor HH - Transfuse as necessary - Supportive care - If rebleeds probably needs Interventional radiology to embolize. - Palliative care following, Hospice evaluation - Further recommendations to follow based on results of above - This pt seen by myself and Dr Link and this note is written on her behalf (Carleen Corona) Carleen Corona Apr 30, 2017 13:55 Yudelka Link MD Apr 30, 2017 16:26
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
[2017-04-30] MEDS ORDERED: PANTOPRAZOLE SOD 40 MG DELAYED RELEASE TAB PO SCH (21:00)
== END 2017-04-30 15:52 | DRG 378 ==
LOC: NEPE 09:07 → NEDA 10:24 → HOCA 13:35
PROVIDERS: ADMIT Specialist; ATTEND Specialist
PROC: 3E0G8GC Introduction of Other Therapeutic Substance into Upper GI, Via Natural or Artificial Opening Endoscopic (ICD-10-PCS; 2017-04-25)
PROC: 0DC98ZZ Extirpation of Matter from Duodenum, Via Natural or Artificial Opening Endoscopic (ICD-10-PCS; 2017-04-25)
PROC: 30233N1 Transfusion of Nonautologous Red Blood Cells into Peripheral Vein, Percutaneous Approach (ICD-10-PCS; 2017-04-25)
PROC: 0W3P8ZZ Control Bleeding in Gastrointestinal Tract, Via Natural or Artificial Opening Endoscopic (ICD-10-PCS; principal; 2017-04-25 16:00)
DX: K26.4 Chronic or unspecified duodenal ulcer with hemorrhage (principal); D62 Acute posthemorrhagic anemia; N17.9 Acute kidney failure, unspecified; E87.2 Acidosis; E22.2 Syndrome of inappropriate secretion of antidiuretic hormone; E11.22 Type 2 diabetes mellitus with diabetic chronic kidney disease; I10 Essential (primary) hypertension; R23.1 Pallor; N18.9 Chronic kidney disease, unspecified; I12.9 Hypertensive chronic kidney disease with stage 1 through stage 4 chronic kidney disease, or unspecified chronic kidney disease; H91.90 Unspecified hearing loss, unspecified ear; E87.5 Hyperkalemia; D72.829 Elevated white blood cell count, unspecified; D32.0 Benign neoplasm of cerebral meninges; H35.30 Unspecified macular degeneration; E88.09 Other disorders of plasma-protein metabolism, not elsewhere classified; R63.0 Anorexia; E87.6 Hypokalemia; F03.91 Unspecified dementia, unspecified severity, with behavioral disturbance; Z66 Do not resuscitate; Z68.24 Body mass index [BMI] 24.0-24.9, adult; Z79.84 Long term (current) use of oral hypoglycemic drugs
CPT/HCPCS: 36430; 51702; 74020; 76937; 80048; 80053; 83735; 84132; 85007; 85014; 85018; 85025; 85027; 85610; 85730; 86850; 86900; 86901; 86920; 93005; 96374; C9113; J0171; J3480; J7030; P9016